=== PATIENT | male | born 1995 | race Caucasian/White ===

== ENCOUNTER 2018-02-05 18:53 | Emergency (ER) | payer OTHER ==
[~2018-02-05] VITALS: Ht 162.6 cm; Wt 68.0 kg
--- OUTSIDE RECORDS SUMMARY | 2018-02-05 18:59 | XMS REPORT | Continuity of Care Document ---
Author Author [facility] Organization [facility] Address Unknown Phone Unavailable Allergies Active Description Code Type Severity Reaction Onset Reported/Identified Relationship to Patient Clinical Status Yes ERYTHROMYCIN [id number] Drug Allergy N/A N/A Yes AUGMENTIN [id number] Drug Allergy N/A N/A 06/06/2009 Yes No Known Allergies No Known Allergies Drug Allergy Unknown N/A 2014 Yes No Known Allergies No Known Allergies Drug Allergy Unknown N/A 2014 Medications Medication Packaging Start Date Stop Date Route Dosage Sig CROMOLYN SODIUM Ophthalmic 201307/15/2015 Ophthalmic 4-6 TIMES A DAY ALOCRIL Ophthalmic 01/23/2014 07/15/2015 Ophthalmic 5 twice daily SERTRALINE HCL Oral 07/10/2014 04/22/2015 Oral 90 daily SERTRALINE HCL Oral 01/22/2015 07/29/2015 Oral 90 daily SERTRALINE HCL Oral 04/30/2015 Oral 30 daily FLAGYL ORAL 07/15/2015 07/22/2015 ORAL 21 3 times a day Problems Date Dx Coded Attending Type Code Diagnosis Diagnosed By 02/16/2015 Andrea Regan DO 276.8 HYPOPOTASSEMIA 02/16/2015 Andrea Regan DO 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 Results Test Result Range CBC W/DIFF - 02/16/15 18:35 EOSINOPHIL # 0.1 k/cumm 0.1-0.5 EOSINOPHIL % 1 % 2-4 GRANULOCYTE # 5.0 k/cumm 2.0-9.0 GRANULOCYTE % 68 % 50-75 LYMPHOCYTE # 1.6 k/cumm 1.0-4.0 LYMPHOCYTE % 22 % 20-30 MEAN CELL HGB 30.7 pg 27.0-33.0 MEAN CELL HGB CONCENTRATION 35.2 g/dL 32.0-37.0 MEAN CELL VOLUME 87.1 fl 80.0-100.0 MONOCYTE # 0.7 k/cumm 0.1-1.0 MONOCYTE % 9 % 4-6 RED BLOOD CELL 5.44 m/cumm 4.00-6.00 RED CELL DISTRIBUTION WIDTH 11.8 % 11.0-15.6 WHITE BLOOD CELL 7.3 k/cumm 5.0-10.0 HEMOGLOBIN 16.7 gm/dL 14.0-18.0 HEMATOCRIT 47.4 % 40.0-54.0 PLATELET COUNT 272 k/cumm 150-400 ACETAMINOPHEN (TYLENOL) - 02/16/15 18:35 ACETAMINOPHEN (TYLENOL) < 2 mcg/mL 10-30 SALICYLATE (ASPIRIN) - 02/16/15 18:35 SALICYLATE < 2.8 mg/dL 2.8-29.0 CHEM/HEM PROFILE-BEDSIDE - 02/16/15 18:42 POTASSIUM 3.0 mmol/L 3.5-5.3 METHOD Bedside ANION GAP 16 mmol/L 10-20 METHOD Bedside GLUCOSE 101 mg/dL 70-99 BLOOD UREA NITROGEN 12 mg/dL 7-20 CREATININE 0.9 mg/dL 0.7-1.3 HEMOGLOBIN 16.7 gm/dL 14.0-18.0 HEMATOCRIT 49.0 % 40.0-54.0 SODIUM 140 mmol/L 135-148 CHLORIDE 102 mmol/L 98-110 CARBON DIOXIDE 26 mmol/L 21-32 CALCIUM IONIZED 4.5 mg/dL 4.5-5.3 URINALYSIS, ROUTINE - 02/16/15 19:27 UA LEUKOCYTE ESTERASE DIPSTICK NEGATIVE NEGATIVE UA NITRITE DIPSTICK NEGATIVE NEGATIVE UA PROTEIN DIPSTICK NEGATIVE NEGATIVE UA GLUCOSE DIPSTICK NEGATIVE NEGATIVE UA KETONE DIPSTICK NEGATIVE NEGATIVE UA UROBILINOGEN DIPSTICK NORMAL NORMAL UA BILIRUBIN DIPSTICK NEGATIVE NEGATIVE UA BLOOD DIPSTICK NEGATIVE NEGATIVE UA SPECIFIC GRAVITY 1.025 1.015-1.025 UR PH 6.5 5.0-7.0 UR DRUGS OF ABUSE SCREEN - 02/16/15 19:27 UR AMPHETAMINES SCREEN NEG (<1000 ng/mL) NEGATIVE UR BARBITURATE SCREEN NEG (< 200 ng/mL) NEGATIVE DRUGS OF ABUSE SCREEN COMMENT UR OPIATES SCREEN NEG (< 300 ng/mL) NEGATIVE UR PHENCYCLIDINE (PCP) SCREEN NEG (< 25 ng/mL) NEGATIVE UR CANNABINOIDS (THC) SCREEN NEG (< 50 ng/mL) NEGATIVE UR COCAINE METABOLITE SCREEN NEG (< 300 ng/mL) NEGATIVE UR METHADONE SCREEN NEG (< 300 ng/mL) NEGATIVE UR BENZODIAZEPINE SCREEN NEG (< 200 ng/mL) NEGATIVE LACTIC ACID - 02/16/15 21:51 LACTIC ACID 0.9 mmol/L 0.5-2.2 METABOLIC PANEL, BASIC - 02/16/15 21:51 POTASSIUM 3.3 mmol/L 3.5-5.3 EST GFR (MDRD) > 60 mL/min > 59 ANION GAP 9 mmol/L 5-15 GLUCOSE 91 mg/dL 70-99 CALCIUM 7.5 mg/dL 8.5-10.1 BLOOD UREA NITROGEN 10 mg/dL 7-20 CREATININE 0.9 mg/dL 0.7-1.3 SODIUM 142 mmol/L 135-148 CHLORIDE 107 mmol/L 98-110 CARBON DIOXIDE 26 mmol/L 21-32 MAGNESIUM - 02/16/15 21:51 MAGNESIUM 1.8 mg/dL 1.8-2.4 SALICYLATE (ASPIRIN) - 02/16/15 21:55 SALICYLATE < 2.8 mg/dL 2.8-29.0 SALICYLATE (ASPIRIN) - 02/16/15 23:55 SALICYLATE < 2.8 mg/dL 2.8-29.0 METABOLIC PANEL, BASIC - 02/17/15 01:25 POTASSIUM 3.5 mmol/L 3.5-5.3 EST GFR (MDRD) > 60 mL/min > 59 ANION GAP 8 mmol/L 5-15 EST CrCl (CG) > 60 mL/min > 59 GLUCOSE 129 mg/dL 70-99 CALCIUM 7.7 mg/dL 8.5-10.1 BLOOD UREA NITROGEN 9 mg/dL 7-20 CREATININE 0.9 mg/dL 0.7-1.3 SODIUM 141 mmol/L 135-148 CHLORIDE 107 mmol/L 98-110 CARBON DIOXIDE 26 mmol/L 21-32 ARTERIAL BLOOD GAS - 02/17/15 01:30 ABG BASE EXCESS -0.8 meq/L -3.0-3.0 ABG BICARBONATE 24.0 meq/L 23.0-28.0 ABG PCO2 41 mm Hg 34-45 ABG PH 7.39 7.35-7.45 ABG PO2 105 mm Hg 75-100 ABG O2 SATURATION 98 % 93-100 SALICYLATE (ASPIRIN) - 02/17/15 01:43 SALICYLATE < 2.8 mg/dL 2.8-29.0 SALICYLATE (ASPIRIN) - 02/17/15 04:04 SALICYLATE < 2.8 mg/dL 2.8-29.0 CBC W/DIFF - 02/17/15 04:13 EOSINOPHIL # 0.1 k/cumm 0.1-0.5 EOSINOPHIL % 1 % 2-4 GRANULOCYTE # 4.9 k/cumm 2.0-9.0 GRANULOCYTE % 60 % 50-75 LYMPHOCYTE # 2.2 k/cumm 1.0-4.0 LYMPHOCYTE % 27 % 20-30 MEAN CELL HGB 31.0 pg 27.0-33.0 MEAN CELL HGB CONCENTRATION 35.4 g/dL 32.0-37.0 MEAN CELL VOLUME 87.7 fl 80.0-100.0 MONOCYTE # 1.0 k/cumm 0.1-1.0 MONOCYTE % 12 % 4-6 RED BLOOD CELL 4.71 m/cumm 4.00-6.00 RED CELL DISTRIBUTION WIDTH 12.0 % 11.0-15.6 WHITE BLOOD CELL 8.2 k/cumm 5.0-10.0 HEMOGLOBIN 14.6 gm/dL 14.0-18.0 HEMATOCRIT 41.3 % 40.0-54.0 PLATELET COUNT 214 k/cumm 150-400 METABOLIC PANEL, BASIC - 02/17/15 04:13 POTASSIUM 3.4 mmol/L 3.5-5.3 EST GFR (MDRD) > 60 mL/min > 59 ANION GAP 7 mmol/L 5-15 EST CrCl (CG) > 60 mL/min > 59 GLUCOSE 85 mg/dL 70-99 CALCIUM 8.0 mg/dL 8.5-10.1 BLOOD UREA NITROGEN 9 mg/dL 7-20 CREATININE 0.8 mg/dL 0.7-1.3 SODIUM 144 mmol/L 135-148 CHLORIDE 108 mmol/L 98-110 CARBON DIOXIDE 29 mmol/L 21-32 SALICYLATE (ASPIRIN) - 02/17/15 06:15 SALICYLATE < 2.8 mg/dL 2.8-29.0 SALICYLATE (ASPIRIN) - 02/17/15 08:32 SALICYLATE < 2.8 mg/dL 2.8-29.0 METABOLIC PANEL, BASIC - 02/17/15 08:32 POTASSIUM 4.1 mmol/L 3.5-5.3 EST GFR (MDRD) > 60 mL/min > 59 ANION GAP 7 mmol/L 5-15 EST CrCl (CG) > 60 mL/min > 59 GLUCOSE 102 mg/dL 70-99 CALCIUM 8.2 mg/dL 8.5-10.1 BLOOD UREA NITROGEN 7 mg/dL 7-20 CREATININE 0.8 mg/dL 0.7-1.3 SODIUM 141 mmol/L 135-148 CHLORIDE 107 mmol/L 98-110 CARBON DIOXIDE 27 mmol/L 2132 SALICYLATE (ASPIRIN) - 02/17/15 10:02 SALICYLATE < 2.8 mg/dL 2.8-29.0 CBC W/DIFF - 02/18/15 05:23 EOSINOPHIL # 0.1 k/cumm 0.1-0.5 EOSINOPHIL % 2 % 2-4 GRANULOCYTE # 3.8 k/cumm 2.0-9.0 GRANULOCYTE % 62 % 50-75 LYMPHOCYTE # 1.6 k/cumm 1.0-4.0 LYMPHOCYTE % 26 % 20-30 MEAN CELL HGB 30.5 pg 27.0-33.0 MEAN CELL HGB CONCENTRATION 34.5 g/dL 32.0-37.0 MEAN CELL VOLUME 88.4 fl 80.0-100.0 MONOCYTE # 0.6 k/cumm 0.1-1.0 MONOCYTE % 10 % 4-6 RED BLOOD CELL 4.75 m/cumm 4.00-6.00 RED CELL DISTRIBUTION WIDTH 12.0 % 11.0-15.6 WHITE BLOOD CELL 6.2 k/cumm 5.0-10.0 HEMOGLOBIN 14.5 gm/dL 14.0-18.0 HEMATOCRIT 42.0 % 40.0-54.0 PLATELET COUNT 202 k/cumm 150-400 RENAL FUNCTION PANEL - 02/18/15 05:23 POTASSIUM 3.3 mmol/L 3.5-5.3 EST GFR (MDRD) > 60 mL/min > 59 ANION GAP 8 mmol/L 5-15 EST CrCl (CG) > 60 mL/min > 59 GLUCOSE 173 mg/dL 70-99 CALCIUM 7.9 mg/dL 8.5-10.1 BLOOD UREA NITROGEN 5 mg/dL 7-20 CREATININE 0.8 mg/dL 0.7-1.3 SODIUM 141 mmol/L 135-148 CHLORIDE 106 mmol/L 98-110 CARBON DIOXIDE 27 mmol/L 21-32 ALBUMIN 3.1 gm/dL 3.4-5.0 PHOSPHORUS 3.0 mg/dL 2.5-4.9 MAGNESIUM - 02/18/15 05:23 MAGNESIUM 1.9 mg/dL 1.8-2.4 Encounters ACCT No. Visit Date/Time Discharge Status Pt. Type Provider Facility Loc./Unit Complaint [id number] 02/16/2015 19:01:00 02/18/2015 16:23:00 DIS Inpatient [facility] W.3CS [id number] 02/25/2013 14:09:00 02/25/2013 14:34:00 DIS Emergency [facility] W.EMMA [id number] 05/19/2012 15:32:00 05/19/2012 23:59:59 [facility] Emergency [id number] 10/08/2016 13:48:15 10/08/2016 13:48:15 DIS Outpatient [id number] 08/29/2016 04:26:56 ACT Document Registration [id number] 08/22/2016 20:45:00 08/22/2016 21:23:00 DIS Emergency Tc VERDE, Kwame Caceres [facility] E.ED [id number] 07/10/2015 18:23:00 07/10/2015 18:58:00 DIS Emergency Chintan VERDE, Zack Beckett [facility] E.ED
[2018-02-05 19:12] LABS: BASOPHILS % (AUTO) 0 % (0-10); EOSINOPHILS % (AUTO) 1 % (0-10); HEMATOCRIT 45 % (40-54); HEMOGLOBIN 17.1 G/DL (13.3-17.7); LYMPHOCYTES # (AUTO) 1.2 X 10^3 (1.0-4.0); LYMPHOCYTES % (AUTO) 22 % (12-44); MEAN CORPUSCULAR HEMOGLOBIN 33 PG (25-34); MEAN CORPUSCULAR HGB CONC 38 G/DL (32-36); MEAN CORPUSCULAR VOLUME 87 FL (80-99); MEAN PLATELET VOLUME 9.9 FL (7.4-10.4); MONOCYTES # (AUTO) 0.3 X 10^3 (0.0-1.0); MONOCYTES % (AUTO) 6 % (0-12); NEUTROPHILS # (AUTO) 4.1 X 10^3 (1.8-7.8); NEUTROPHILS % (AUTO) 71 % (42-75); PLATELET COUNT 254 10^3/uL (130-400); RED BLOOD COUNT 5.17 10^6/uL (4.35-5.85); RED CELL DISTRIBUTION WIDTH 12.1 % (10.0-14.5); WHITE BLOOD COUNT 5.7 10^3/uL (4.3-11.0)
--- NOTE | 2018-02-05 19:13 | ED Headache ---
General Chief Complaint: Head/Cervical Problems Stated Complaint: FACE REDNESS/MIGRAINE/VOMITING Source: patient Exam Limitations: no limitations History of Present Illness Date Seen by Provider: Feb 05, 2018 Time Seen by Provider: 19:08 Initial Comments to ER with reports of a headache.He has associated facial redness and vomiting. The headache is frontal in location. A history of headaches/migraines when he was in high school several years ago He's been several years without a headache however. He takes no daily medications. This morning while visiting his parents in [place] he was eating breakfast at [facility] he developed a minor frontal headache. Throughout the day this has progressively gotten worse and has been associated with nausea and vomiting. He notices his face looks red now. Timing/Duration: constant Severity/Quality: constant Location: frontal Associated Symptoms: No confusion, No fatigue, No facial pain; nausea/vomiting Allergies and Home Medications Allergies Coded Allergies: No Known Drug Allergies (Unverified , 02/05/18) Home Medications No Active Prescriptions or Reported Meds Patient Home Medication List Home Medication List Reviewed: Yes Review of Systems Constitutional: see HPI Eyes: No Symptoms Reported Ears, Nose, Mouth, Throat: no symptoms reported Respiratory: no symptoms reported Cardiovascular: no symptoms reported Gastrointestinal: nausea, vomiting Genitourinary: no symptoms reported Musculoskeletal: no symptoms reported Skin: no symptoms reported Psychiatric/Neurological: Headache Past Uayjavs-Gfelwy-Zambtr Hx Patient Social History Alcohol Use: Denies Use Recreational Drug Use: No Smoking Status: Never a Smoker 2nd Hand Smoke Exposure: No Recent Foreign Travel: No Contact w/Someone Who Travel: No Recent Hopitalizations: No Immunizations Up To Date Tetanus Booster (TDap): Unknown PED Vaccines UTD: Yes Seasonal Allergies Seasonal Allergies: No Past Medical History Surgeries: No Respiratory: No Cardiac: No Neurological: Yes Headaches /Migraines Genitourinary: No Gastrointestinal: No Musculoskeletal: No Endocrine: No HEENT: No Cancer: No Psychosocial: No Integumentary: No Blood Disorders: No Physical Exam Vital Signs Vital Signs - First Documented 02/05/18 19:04 Temp 97.5 Pulse 64 Resp 16 B/P (MAP) 130/85 (100) Pulse Ox 98 O2 Delivery Room Air Capillary Refill : General Appearance: WD/WN, no apparent distress, other (alert and oriented, pleasant GCS 15, ambulatory without assistive device from the waiting room to room 6.) HEENT: PERRL/EOMI, normal ENT inspection, TMs normal, other (he does have some petechiae periorbitally and about his entire face. Would likely be from all the vomiting he's been doing.) Cardiovascular: regular rate, rhythm, no murmur Respiratory: chest non-tender, lungs clear Gastrointestinal: normal bowel sounds, non tender, soft Extremities: normal range of motion Psychiatric: alert, oriented x 3 Crainal Nerves: normal hearing, normal speech, PERRL Skin: normal color, warm/dry Progress/Results/Core Measures Results/Orders Lab Results Laboratory Tests Test 02/05/18 19:00 Range/Units White Blood Count 5.7 4.3-11.0 10^3/uL Red Blood Count 5.17 4.35-5.85 10^6/uL Hemoglobin 17.1 13.3-17.7 G/DL Hematocrit 45 40-54 % Mean Corpuscular Volume 87 80-99 FL Mean Corpuscular Hemoglobin 33 25-34 PG Mean Corpuscular Hemoglobin Concent 38 H 32-36 G/DL Red Cell Distribution Width 12.1 10.0-14.5 % Platelet Count 254 130-400 10^3/uL Mean Platelet Volume 9.9 7.4-10.4 FL Neutrophils (%) (Auto) 71 42-75 % Lymphocytes (%) (Auto) 22 12-44 % Monocytes (%) (Auto) 6 0-12 % Eosinophils (%) (Auto) 1 0-10 % Basophils (%) (Auto) 0 0-10 % Neutrophils # (Auto) 4.1 1.8-7.8 X 10^3 Lymphocytes # (Auto) 1.2 1.0-4.0 X 10^3 Monocytes # (Auto) 0.3 0.0-1.0 X 10^3 Eosinophils # (Auto) 0.0 0.0-0.3 10^3/uL Basophils # (Auto) 0.0 0.0-0.1 10^3/uL My Orders Orders - JAN MARIA APRN Cbc With Automated Diff (02/05/18 19:06) Iv Heplock-Insert (Order) (02/05/18 19:06) Ct Head Wo (02/05/18 19:06) Ns Iv 1000 Ml (Sodium Chloride 0.9%) (02/05/18 19:15) Prochlorperazine Injection (Compazine In (02/05/18 19:15) Ketorolac Injection (Toradol Injection) (02/05/18 19:15) Lorazepam Injection (Ativan Injection) (02/05/18 20:00) Diphenhydramine Injection (Benadryl Inje (02/05/18 20:45) Diphenhydramine Injection (Benadryl Inje (02/05/18 20:37) Medications Given in ED Current Medications Medications Dose Ordered Sig/Mercedes Route Start Time Stop Time Status Last Admin Dose Admin Diphenhydramine HCl 25 mg ONCE ONCE IVP 02/05/18 20:45 02/05/18 20:46 DC 02/05/18 20:40 25 MG Diphenhydramine HCl 50 mg STK-MED ONCE .ROUTE 02/05/18 20:37 02/05/18 20:38 DC 02/05/18 20:40 50 MG Ketorolac Tromethamine 15 mg ONCE ONCE IVP 02/05/18 19:15 02/05/18 19:16 DC 02/05/18 19:15 15 MG Lorazepam 0.5 mg ONCE ONCE IVP 02/05/18 20:00 02/05/18 20:01 DC 02/05/18 20:01 0.5 MG Prochlorperazine Edisylate 5 mg ONCE ONCE IV 02/05/18 19:15 02/05/18 19:16 DC 02/05/18 19:14 5 MG Vital Signs/I&O 02/05/18 19:04 Temp 97.5 Pulse 64 Resp 16 B/P (MAP) 130/85 (100) Pulse Ox 98 O2 Delivery Room Air Departure Communication (Admissions) his headache was minimal at first and progressively got worse. This would be an unusual presentation for subarachnoid hemorrhage. He has no fevers or nuchal rigidity. 1951-his headache and nausea are better. He states he is feeling very "antsy" referring to anxiousness after receiving the Compazine. lorazepam 0.5 mg IV ordered. 2099- is symptoms of anxiety and restlessness are gone. He feels back to normal and ready to go home. Impression Primary Impression: Headache Disposition: HOME, SELF-CARE Condition: Stable Departure-Patient Inst. Decision time for Depature: 19:34 Referrals: NO,LOCAL PHYSICIAN (PCP/Family) Primary Care Physician Patient Instructions: Headache, Adult (DC) Add. Discharge Instructions: 1. Return to ER for any concerns or worsening symptoms 2. Follow-up with your doctor next week All discharge instructions reviewed with patient and/or family. Voiced understanding. Scripts No Active Prescriptions or Reported Meds JAN MARIA CARRIAGE FEEDER Feb 05, 2018 19:13
[2018-02-05] MEDS ORDERED: NS IV 1000 ML 1,000 ML IV SCH (19:15)
[2018-02-05] MEDS ORDERED: KETOROLAC 30 MG/ML VIAL IVP ONE (19:15)
[2018-02-05] MEDS ORDERED: PROCHLORPERAZINE 10 MG/2ML INJ (COMPAZINE) IV ONE (19:15)
--- NOTE | 2018-02-05 19:32 | Diagnostic Imaging Report ---
PROCEDURE: CT head without contrast. INDICATION: Migraine headache with nausea, emesis and blurred vision CT HEAD: Multiple contiguous axial CT images of the head were obtained. FINDINGS: Ventricles and sulci are within normal limits for size. There is no intracranial hemorrhage identified. There is no abnormal mass effect or shift of midline structures. IMPRESSION: Unremarkable CT of the head. Dictated by: Dictated on workstation # [id number]
[2018-02-05] MEDS ORDERED: LORazepam INJ 2 MG/ML (ATIVAN) VIAL IVP ONE (20:00)
[2018-02-05] MEDS ORDERED: diphenhydrAMINE 50 MG/ML INJ (BENADRYL) ONE (20:37)
[2018-02-05] MEDS ORDERED: diphenhydrAMINE 50 MG/ML INJ (BENADRYL) IVP ONE (20:45)
[2018-02-05 21:01] VITALS: BP 121/82
== END 2018-02-05 21:00 | disposition home or self-care (01) ==
LOC: ER 18:56
DX: R51 Headache (principal)
CPT/HCPCS: 36415; 70450; 85025; 96361; 96374; 96375